=== PATIENT | female | born 1995 | race Caucasian/White ===

== ENCOUNTER → 2016-11-26 | Outpatient (CLI) | payer OTHER ==
[2016-11-26 13:31] LABS: BASO % 0.9 % (0.0-1.0); EOS # 0.2 K/mm3 (0.0-0.50); EOS % 3.5 % (0.0-3.0); LARGE UNSTAINED CELL # 0.2 K/mm3 (0.0-0.4); LARGE UNSTAINED CELL % 2.8 % (0.0-4.0); LYMPH # 1.6 K/mm3 (1.5-6.5); LYMPH % 28.1 % (24.0-44.0); MEAN CORPUSCULAR HEMOGLOBIN 30.3 pg (27.0-33.0); MEAN CORPUSCULAR HGB CONC 32.9 g/dl (32.0-36.5); MEAN CORPUSCULAR VOLUME 92.1 fl (80.0-96.0); MONO # 0.4 K/mm3 (0.0-0.8); NEUTROPHILS % 57.8 % (36.0-66.0); PLATELET COUNT, AUTOMATED 206 k/mm3 (150-450); RED CELL DISTRIBUTION WIDTH 12.6 % (11.5-14.5); WHITE BLOOD COUNT 5.3 K/mm3 (4.0-10.0)
[2016-11-26 13:41] LABS: CONTROL LINE HCG INT CTR LINE PRESENT
[2016-11-26 13:54] LABS: PROLACTIN 2.7 NG/ML
[2016-11-26 13:59] LABS: ALBUMIN 4.4 GM/DL (3.2-5.2); ALBUMIN/GLOBULIN RATIO 1.69 (1.00-1.93); ALKALINE PHOSPHATASE 60 U/L (45-117); ALT/SGPT 38 U/L (12-78); ANION GAP 6 MEQ/L (8-16); AST/SGOT 33 U/L (15-37); BILIRUBIN,TOTAL 0.5 MG/DL (0.2-1.0); BLOOD UREA NITROGEN 24 MG/DL (7-18); CARBON DIOXIDE LEVEL 30 MEQ/L (21-32); CHLORIDE LEVEL 104 MEQ/L (98-107); CREATININE FOR GFR 0.81 MG/DL (0.55-1.02); GLOMERULAR FILTRATION RATE > 60.0 (>60); GLUCOSE, FASTING 106 MG/DL (70-105); POTASSIUM SERUM 4.4 MEQ/L (3.5-5.1); SODIUM LEVEL 140 MEQ/L (136-145)
== END ==
LOC: M LAB 12:31
PROVIDERS: ATTEND Family Medicine
DX: N91.2 Amenorrhea, unspecified (principal); R00.2 Palpitations

== ENCOUNTER → 2017-05-15 | Outpatient (REF) | payer OTHER ==
[~2017-05-15] MED LIST: CLEO300C2 PO; HYDR-3713 PO; IBUP-1114 PO; LIDO1SOL7 MT; NUVAMIS2 VA; PENI250T57 PO; PRED20TA PO
== END ==
LOC: M LAB REF 10:39
PROVIDERS: ATTEND Physician Assistant
DX: J02.9 Acute pharyngitis, unspecified (principal)

== ENCOUNTER → 2017-05-17 | Outpatient (REF) | payer OTHER ==
[2017-05-17 16:42] LABS: BASO # 0.2 K/mm3 (0.0-0.2); BASO % 1.5 % (0.0-1.0); EOS % 0.3 % (0.0-3.0); LARGE UNSTAINED CELL # 0.8 K/mm3 (0.0-0.4); LARGE UNSTAINED CELL % 7.4 % (0.0-4.0); LYMPH # 5.9 K/mm3 (1.5-6.5); LYMPH % 45.4 % (24.0-44.0); MEAN CORPUSCULAR HEMOGLOBIN 31.6 pg (27.0-33.0); MEAN CORPUSCULAR HGB CONC 33.3 g/dl (32.0-36.5); MEAN CORPUSCULAR VOLUME 94.8 fl (80.0-96.0); MONO # 0.6 K/mm3 (0.0-0.8); MONO % 5.6 % (0.0-5.0); NEUTROPHILS # 4.4 K/mm3 (1.8-7.7); NEUTROPHILS % 39.7 % (36.0-66.0); PLATELET COUNT, AUTOMATED 168 k/mm3 (150-450); RED CELL DISTRIBUTION WIDTH 13.3 % (11.5-14.5); WHITE BLOOD COUNT 11.2 K/mm3 (4.0-10.0)
[2017-05-17 16:44] LABS: ALBUMIN 3.6 GM/DL (3.2-5.2); ALBUMIN/GLOBULIN RATIO 1.13 (1.00-1.93); ALKALINE PHOSPHATASE 52 U/L (45-117); ALT/SGPT 112 U/L (12-78); ANION GAP 6 MEQ/L (8-16); AST/SGOT 63 U/L (15-37); BILIRUBIN,TOTAL 0.4 MG/DL (0.2-1.0); BLOOD UREA NITROGEN 15 MG/DL (7-18); CALCIUM LEVEL 8.4 MG/DL (8.5-10.1); CARBON DIOXIDE LEVEL 30 MEQ/L (21-32); CHLORIDE LEVEL 106 MEQ/L (98-107); CREATININE FOR GFR 0.78 MG/DL (0.55-1.02); GLOMERULAR FILTRATION RATE > 60.0 (>60); GLUCOSE, FASTING 74 MG/DL (70-105); POTASSIUM SERUM 4.4 MEQ/L (3.5-5.1); SODIUM LEVEL 142 MEQ/L (136-145); TOTAL PROTEIN 6.8 GM/DL (6.4-8.2)
== END ==
LOC: M LABDRAW1 15:43
PROVIDERS: ATTEND Family Medicine
DX: B27.90 Infectious mononucleosis, unspecified without complication (principal)

== ENCOUNTER 2017-05-19 11:15 | Emergency (ER) | payer OTHER ==
[~2017-05-19] VITALS: Ht 152.4 cm; Wt 51.4 kg
[2017-05-19] MEDS ORDERED: IBUP-1114 PO (11:27)
[2017-05-19] MEDS ORDERED: dexameTHASONE 20 MG/5 ML VIAL (J1100) IV ONE (12:15)
[2017-05-19] MEDS ORDERED: CLINDAMYCIN 900 MG in APPROPRIATE DILUENT 1 EA IV ONE (12:15)
[2017-05-19] MEDS ORDERED: NS 1,000 ML IV ONE (12:15)
[2017-05-19] MEDS ORDERED: KETOROLAC 30 MG/ML VIAL (J1885) IV ONE (13:00)
[2017-05-19 13:20] LABS: BASO # 0.3 K/mm3 (0.0-0.2); BASO % 1.9 % (0.0-1.0); EOS % 0.2 % (0.0-3.0); LARGE UNSTAINED CELL # 0.9 K/mm3 (0.0-0.4); LARGE UNSTAINED CELL % 6.1 % (0.0-4.0); LYMPH # 7.4 K/mm3 (1.5-6.5); LYMPH % 44.6 % (24.0-44.0); MEAN CORPUSCULAR HEMOGLOBIN 31.9 pg (27.0-33.0); MEAN CORPUSCULAR HGB CONC 34.4 g/dl (32.0-36.5); MEAN CORPUSCULAR VOLUME 92.7 fl (80.0-96.0); MONO # 0.8 K/mm3 (0.0-0.8); MONO % 5.6 % (0.0-5.0); NEUTROPHILS % 41.6 % (36.0-66.0); PLATELET COUNT, AUTOMATED 166 k/mm3 (150-450); RED CELL DISTRIBUTION WIDTH 13.1 % (11.5-14.5); WHITE BLOOD COUNT 14.5 K/mm3 (4.0-10.0)
[2017-05-19 13:23] LABS: ANION GAP 8 MEQ/L (8-16); BLOOD UREA NITROGEN 20 MG/DL (7-18); CALCIUM LEVEL 9.2 MG/DL (8.5-10.1); CARBON DIOXIDE LEVEL 28 MEQ/L (21-32); CHLORIDE LEVEL 104 MEQ/L (98-107); CREATININE FOR GFR 0.92 MG/DL (0.55-1.02); GLOMERULAR FILTRATION RATE > 60.0 (>60); GLUCOSE, FASTING 88 MG/DL (70-105); POTASSIUM SERUM 4.7 MEQ/L (3.5-5.1); SODIUM LEVEL 140 MEQ/L (136-145)
[2017-05-19] MEDS ORDERED: PENI250T57 PO (14:13)
[2017-05-19] MEDS ORDERED: LIDO1SOL7 MT (14:19)
[2017-05-19 14:20] VITALS: BP 123/62
[2017-05-20] MEDS ORDERED: NUVAMIS2 VA (12:07)
[2017-05-20] MEDS ORDERED: CLEO300C2 PO (14:59)
[2017-05-20] MEDS ORDERED: HYDR-3713 PO (14:59)
[2017-05-20] MEDS ORDERED: PRED20TA PO (14:59)
== END 2017-05-19 14:31 | disposition home or self-care (01) ==
LOC: M ED 11:15
DX: J02.0 Streptococcal pharyngitis (principal); B27.90 Infectious mononucleosis, unspecified without complication
CPT/HCPCS: 80048; 85025; 96365; 96366; 96375; 99283; J1100; J1885

== ENCOUNTER 2017-05-20 11:56 | Emergency (ER) | payer OTHER ==
[~2017-05-20] VITALS: Ht 152.4 cm; Wt 52.3 kg
[~2017-05-20 11:56] MED LIST changes: -CLEO300C2 PO; -HYDR-3713 PO; -NUVAMIS2 VA; -PRED20TA PO
[2017-05-20] MEDS ORDERED: NUVAMIS2 VA (12:07)
[2017-05-20] MEDS ORDERED: methylPREDNISolone INJ 125 MG/2 ML VIAL (J2930) IV ONE (12:30)
[2017-05-20] MEDS ORDERED: MORPHINE 4 MG/ML 1ML SYRINGE IV ONE (12:30)
[2017-05-20] MEDS ORDERED: CLINDAMYCIN 300 MG in APPROPRIATE DILUENT 1 EA IV ONE (12:30)
[2017-05-20 13:11] LABS: ADD MANUAL DIFFER YES; MEAN CORPUSCULAR HEMOGLOBIN 31.6 pg (27.0-33.0); MEAN CORPUSCULAR HGB CONC 34.3 g/dl (32.0-36.5); PLATELET COUNT, AUTOMATED 167 k/mm3 (150-450); RED CELL DISTRIBUTION WIDTH 12.9 % (11.5-14.5); WHITE BLOOD COUNT 10.4 K/mm3 (4.0-10.0)
[2017-05-20 13:16] LABS: CONTROL LINE MONO INT CTR LINE PRESENT
[2017-05-20 13:27] LABS: BANDS 2 % (< 11)
[2017-05-20] MEDS ORDERED: ISOVUE-370 76% 100ML VIAL (Q9967) As Ordered ONE (13:48)
--- NOTE | 2017-05-20 14:39 | REP ---
CT SOFT-TISSUE NECK WITH CONTRAST: 05/20/2017 CLINICAL HISTORY: Sore throat, evaluate for abscess. TECHNIQUE: The patient received bolus of 75 mL Isovue 370 and scanning through the neck soft tissues with coronal and sagittal reconstructions. FINDINGS: There were no prior studies. The parotid glands and submandibular glands are symmetric and normal. The nasopharynx is intact with slight thickening of the adenoid pad but no airway compromise however the bilateral tonsillar fossa show edema and enlargement. I do not see a definite rim enhancing abscess but there is slightly more swelling left than right and there is subtle heterogeneity of both tonsils. The parapharyngeal fat planes are preserved superiorly. Tongue base clear. There are reactive nodes in the anterior cervical chain in the carotid space with nodes 12.5 mm diameter on both sides. Most other nodes are smaller. The oropharynx and hypopharynx show the airway intact. Epiglottis and its folds intact. The larynx is intact and subglottic trachea normal. Thyroid lobes symmetric and normal. Visualized bones intact with reversal of the normal cervical lordosis. The skull base, mandible and facial bones including maxilla included are unremarkable. The visualized sinuses are clear. Lung apices were clear. Bone windows show the ribs, medial heads of the clavicles and scapula intact. IMPRESSION: 1. Bilateral tonsillitis and peritonsillitis without definite abscess formation at this time, phlegmonous changes may be present. No definite necrosis with enhancing edges. Both tonsils enlarged. Airway intact. 2. Some reactive nodes in the carotid space bilaterally in the anterior cervical chain. Smaller nodes seen elsewhere. Those largest nodes are 12.5 mm in short axis, one on each side. 3. The epiglottis, larynx, subglottic trachea and the airway from nasopharynx through hypopharynx intact. Please note that this study has only just been made available for my signature in my sign queue. A wet reading at the time of the examination and spoke to the requesting physician pharmacy sales assistant at that time. Signed by Dariel Mcneal MD 05/26/2017 08:14 P
[2017-05-20] MEDS ORDERED: HYDR-3713 PO (14:59)
[2017-05-20] MEDS ORDERED: CLEO300C2 PO (14:59)
[2017-05-20] MEDS ORDERED: PRED20TA PO (14:59)
[2017-05-20 15:00] VITALS: BP 119/64
== END 2017-05-20 15:24 | disposition home or self-care (01) ==
LOC: M ED 11:56
DX: J02.9 Acute pharyngitis, unspecified (principal); B27.90 Infectious mononucleosis, unspecified without complication
CPT/HCPCS: 36415; 70491; 81025; 85025; 86308; 96365; 96375; 99284; J2930; Q9967

== ENCOUNTER 2017-06-08 20:07 | Emergency (ER) | payer OTHER ==
[~2017-06-08] VITALS: Ht 152.4 cm; Wt 50.0 kg
[~2017-06-08 20:07] MED LIST changes: +CLEO300C2 PO; +HYDR-3713 PO; +NUVAMIS2 VA; +PRED20TA PO
[2017-06-08 23:32] VITALS: BP 105/60
== END 2017-06-08 23:33 | disposition home or self-care (01) ==
LOC: M ED 20:07
DX: R10.12 Left upper quadrant pain (principal)

== ENCOUNTER → 2017-06-11 | Outpatient (REF) | payer OTHER | LOC: M LAB REF 09:41 | PROVIDERS: ATTEND Physician Assistant Medical | DX: J02.9 Acute pharyngitis, unspecified (principal) ==

== ENCOUNTER 2017-07-31 19:41 | Emergency (ER) | payer OTHER ==
[~2017-07-31] VITALS: Ht 149.9 cm; Wt 52.3 kg
[2017-07-31] MEDS ORDERED: antibiotic PO (19:55)
[2017-07-31] MEDS ORDERED: STEROID TOP (19:55)
[2017-07-31] MEDS ORDERED: NAPR500T3 PO (22:14)
[2017-07-31] MEDS ORDERED: ROBA500T PO (22:14)
[2017-07-31] MEDS ORDERED: METHOCARBAMOL 500 MG TAB PO ONE (22:15)
[2017-07-31 22:21] VITALS: BP 127/58
--- NOTE | 2017-08-01 10:06 | REP ---
Clinical: Pain . Technique: AP, lateral, and open-mouth views. Findings: Alignment is maintained. Straightening of normal lordosis is nonspecific. There is no evidence for acute fracture / compression injury or subluxation. No significant degenerative changes are appreciated. Open mouth view demonstrates normal C1-C2 articulation and odontoid process. Impression: Essentially normal three view cervical spine series. Signed by Sergio Padron MD 08/01/2017 09:57 A
== END 2017-07-31 22:26 | disposition home or self-care (01) ==
LOC: M ED 19:41
DX: S46.811A Strain of other muscles, fascia and tendons at shoulder and upper arm level, right arm, initial encounter (principal); X50.1XXA Overexertion from prolonged static or awkward postures, initial encounter; Y92.39 Other specified sports and athletic area as the place of occurrence of the external cause; Y93.B9 Activity, other involving muscle strengthening exercises; Y99.8 Other external cause status

== ENCOUNTER → 2017-10-26 | Outpatient (REF) | payer OTHER ==
[2017-10-26 15:46] LABS: BASO # 0.1 10^3/uL (0.0-0.2); BASO % 0.8 % (0.0-1.0); EOS % 0.7 % (0.0-3.0); HEMATOCRIT 37.2 % (36.0-47.0); HEMOGLOBIN 12.2 g/dl (12.0-16.0); IMMATURE GRANULOCYTE % 0.2 % (0-3.0); LYMPH # 1.4 10^3/uL (1.5-6.5); LYMPH % 22.8 % (24.0-44.0); MEAN CORPUSCULAR HGB CONC 32.8 g/dl (32.0-36.5); MEAN CORPUSCULAR VOLUME 91.6 fl (80.0-96.0); MONO # 0.4 10^3/uL (0.0-0.8); MONO % 6.6 % (0.0-5.0); NEUTROPHILS # 4.2 10^3/uL (1.8-7.7); NEUTROPHILS % 68.9 % (36.0-66.0); PLATELET COUNT, AUTOMATED 218 10^3/uL (150-450); RED BLOOD COUNT 4.06 10^6/uL (4.00-5.40); RED CELL DISTRIBUTION WIDTH 12.7 % (11.5-14.5); WHITE BLOOD COUNT 6.1 10^3/uL (4.0-10.0)
[2017-10-26 15:59] LABS: ALBUMIN 4.3 GM/DL (3.2-5.2); ALBUMIN/GLOBULIN RATIO 1.72 (1.00-1.93); ALKALINE PHOSPHATASE 46 U/L (45-117); ALT/SGPT 54 U/L (12-78); ANION GAP 6 MEQ/L (8-16); AST/SGOT 44 U/L (7-37); BILIRUBIN,TOTAL 0.5 MG/DL (0.2-1.0); BLOOD UREA NITROGEN 21 MG/DL (7-18); CARBON DIOXIDE LEVEL 30 MEQ/L (21-32); CHLORIDE LEVEL 106 MEQ/L (98-107); CREATININE FOR GFR 0.92 MG/DL (0.55-1.30); GLOMERULAR FILTRATION RATE > 60.0 (>60); GLUCOSE, FASTING 87 MG/DL (70-100); SODIUM LEVEL 142 MEQ/L (136-145); THYROID STIMULATING HORMONE 0.763 uIU/ML (0.358-3.740); TOTAL PROTEIN 6.8 GM/DL (6.4-8.2)
== END ==
LOC: M LABDRAW1 14:34
DX: R53.83 Other fatigue (principal)

== ENCOUNTER 2018-05-28 20:30 | Emergency (ER) | payer BC, OTHER ==
[2018-05-28 22:24] LABS: BASO % 0.6 % (0.0-1.0); EOS # 0.2 10^3/uL (0.0-0.50); EOS % 2.9 % (0.0-3.0); HEMATOCRIT 38.8 % (36.0-47.0); HEMOGLOBIN 12.5 g/dl (12.0-15.5); IMMATURE GRANULOCYTE % 0.5 % (0-3.0); LYMPH # 1.2 10^3/uL (1.5-6.5); LYMPH % 19.1 % (24.0-44.0); MEAN CORPUSCULAR HEMOGLOBIN 30.7 pg (27.0-33.0); MEAN CORPUSCULAR HGB CONC 32.2 g/dl (32.0-36.5); MEAN CORPUSCULAR VOLUME 95.3 fl (80.0-96.0); MONO # 0.8 10^3/uL (0.0-0.8); NEUTROPHILS # 3.9 10^3/uL (1.8-7.7); NEUTROPHILS % 63.9 % (36.0-66.0); PLATELET COUNT, AUTOMATED 184 10^3/uL (150-450); RED BLOOD COUNT 4.07 10^6/uL (4.00-5.40); RED CELL DISTRIBUTION WIDTH 12.9 % (11.5-14.5); WHITE BLOOD COUNT 6.2 10^3/uL (4.0-10.0)
[2018-05-28] MEDS: ONDANSETRON 4MG/2ML VIAL (J2405) IV ×2 (22:30→22:46)
[2018-05-28] MEDS: KETOROLAC 30 MG/ML VIAL (J1885) IV (22:46)
[2018-05-28 22:59] LABS: ALBUMIN 3.7 GM/DL (3.2-5.2); ALBUMIN/GLOBULIN RATIO 1.19 (1.00-1.93); ALKALINE PHOSPHATASE 49 U/L (45-117); ALT/SGPT 39 U/L (12-78); ANION GAP 7 MEQ/L (8-16); AST/SGOT 24 U/L (7-37); BILIRUBIN,TOTAL 0.2 MG/DL (0.2-1.0); BLOOD UREA NITROGEN 23 MG/DL (7-18); CALCIUM LEVEL 8.7 MG/DL (8.5-10.1); CARBON DIOXIDE LEVEL 30 MEQ/L (21-32); CHLORIDE LEVEL 106 MEQ/L (98-107); CREATININE FOR GFR 0.69 MG/DL (0.55-1.30); GLOMERULAR FILTRATION RATE > 60.0 (>60); GLUCOSE, FASTING 69 MG/DL (70-100); POTASSIUM SERUM 4.2 MEQ/L (3.5-5.1); SODIUM LEVEL 143 MEQ/L (136-145); TOTAL PROTEIN 6.8 GM/DL (6.4-8.2)
[2018-05-29] MEDS: NITROFURANTOIN (MACROBID) 100 MG CAP PO (00:49)
[2018-05-29] MEDS: KETOROLAC TROMETHAMINE 10 MG TAB PO (00:49)
== END 2018-05-29 01:00 | disposition home or self-care (01) ==
LOC: M ED 05-29 01:00
DX: N39.0 Urinary tract infection, site not specified (principal); G43.909 Migraine, unspecified, not intractable, without status migrainosus
CPT/HCPCS: J1885

== ENCOUNTER → 2018-05-28 | Outpatient (CLI) | payer OTHER | LOC: M WUC 10:54 | DX: S29.012A Strain of muscle and tendon of back wall of thorax, initial encounter (principal); R10.815 Periumbilic abdominal tenderness; J02.9 Acute pharyngitis, unspecified | CPT/HCPCS: 87086 ==